=== PATIENT | male | born 2000 | race African-American/Black ===

== ENCOUNTER 2019-03-30 09:51 | Emergency (ER) | payer SELFPAY ==
[~2019-03-30] VITALS: Ht 175.3 cm; Wt 74.8 kg
== END 2019-03-30 10:56 | disposition home or self-care (01) ==
LOC: ER 09:51
DX: R39.9 Unspecified symptoms and signs involving the genitourinary system (principal); F17.210 Nicotine dependence, cigarettes, uncomplicated; Z91.018 Allergy to other foods
CPT/HCPCS: 96372; 99283-25; J0696